=== PATIENT | female | born 1935 | race Caucasian/White ===

== ENCOUNTER 2020-04-18 10:08 | Outpatient (CLI) | payer MEDICARE, OTHER, SELFPAY | END 2020-04-18 10:09 | disposition home or self-care (01) | LOC: WOUND 10:10 | PROVIDERS: Family Provider Family Medicine; PCP Family Medicine; Visit Provider Thoracic Surgery (Cardiothoracic Vascular Surgery) | DX: L97.512 Non-pressure chronic ulcer of other part of right foot with fat layer exposed (principal); L97.522 Non-pressure chronic ulcer of other part of left foot with fat layer exposed | CPT/HCPCS: G0463 ==